=== PATIENT | male | born 1980 | race Caucasian/White ===

== ENCOUNTER 2017-08-09 03:12 | Emergency (ER) | payer SELFPAY ==
[~2017-08-09] VITALS: Ht 182.9 cm; Wt 78.0 kg
[~2017-08-09 03:12] MED LIST: DICL75 PO; DOXE50CA3 PO; METH5SOL3 PO; METH750T2 PO; WELL150T PO
[2017-08-09 03:17] VITALS: BP 134/77; PULSE 99; RESP 18; TEMP 98.3; O2SAT 95
[2017-08-09] MEDS ORDERED: SODIUM CHLOR 0.9% 1000 ML INJ 1,000 ML IV ONE (04:30)
[2017-08-09 04:52] VITALS: BP 108/62; PULSE 81; RESP 16; O2SAT 99
[2017-08-09 05:03] LABS: BICARBONATE 22.1 MEQ/L (21.0-32.0); CALCIUM 7.4 MG/DL (8.5-10.1); CREATININE 0.74 MG/DL (0.60-1.30)
[2017-08-09 05:10] LABS: TOTAL BILIRUBIN ADULT 0.2 MG/DL (0.2-1.0); TOTAL PROTEIN 7.1 GM/DL (6.4-8.2)
[2017-08-09 05:12] LABS: CALCIUM-PROTEIN CORRECTED 7.4 MG/DL (8.5-10.1)
[2017-08-09 05:20] LABS: AUTOMATED NEUTROPHIL # 9.6 TH/MM3 (1.8-7.7); BASOPHIL # 0.1 TH/MM3 (0-0.2); BASOPHIL % 0.8 % (0.0-2.0); EOSINOPHIL # 0.1 TH/MM3 (0-0.4); EOSINOPHIL % 0.7 % (0.0-4.0); HEMATOCRIT 40.2 % (39.0-51.0); HEMOGLOBIN 13.1 GM/DL (13.0-17.0); LYMPH % 7.5 % (9.0-44.0); LYMPHOCYTE # 0.8 TH/MM3 (1.0-4.8); MEAN CELL VOLUME 88.1 FL (80.0-100.0); MEAN CORPUSCULAR HEMOGLOBIN 28.8 PG (27.0-34.0); MEAN CORPUSCULAR HGB CONC 32.7 % (32.0-36.0); MEAN PLATELET VOLUME 7.8 FL (7.0-11.0); MONO % 3.3 % (0.0-8.0); MONOCYTE # 0.4 TH/MM3 (0-0.9); NEUT % 87.7 % (16.0-70.0); PLATELET COUNT 222 TH/MM3 (150-450); RED BLOOD COUNT 4.57 MIL/MM3 (4.50-5.90); RED CELL DISTRIBUTION WIDTH 15.3 % (11.6-17.2)
--- NOTE | 2017-08-09 06:20 | PD ---
HPI Chief Complaint: Alcohol/Drug Intoxication Time Seen by Provider: 04:11 Travel History International Travel<30 days: No Contact w/Intl Traveler<30days: No Traveled to known affect area: No History of Present Illness HPI Patient is a 37-year-old male brought in by EMS after he was found unresponsive outside by a passerby. EMS states he was with a group of people who are all sleeping on the board walk. He was given Narcan and awoke. Patient is sleeping , does not provide any history. PFSH Past Medical History Blood Disorders: No Anxiety: No Depression: No Heart Rhythm Problems: No Cardiovascular Problems: No High Cholesterol: No Chemotherapy: No Chest Pain: No Congestive Heart Failure: No Diabetes: No Diminished Hearing: No Endocrine: No Gastrointestinal Disorders: No Genitourinary: No Hypertension: Yes Immune Disorder: No Implanted Vascular Access Dvce: No Musculoskeletal: Yes (back , neck problem) Neurologic: No Psychiatric: No Reproductive: No Respiratory: No Immunizations Current: Yes Radiation Therapy: No Thyroid Disease: No Tetanus Vaccination: < 5 Years Influenza Vaccination: No Past Surgical History Other Surgery: No Social History Alcohol Use: Yes Tobacco Use: Yes Substance Use: Yes Allergies-Medications (Allergen,Severity, Reaction): Coded Allergies: No Known Allergies (Unverified Adverse Reaction, Unknown, 08/09/17) Reported Meds & Prescriptions Reported Meds & Active Scripts Active Active Prescriptions or Reported Medications Unobtainable Review of Systems ROS Limitations: Intoxication Physical Exam Narrative GENERAL: Patient sleeping, hard to wake up. SKIN: Focused skin assessment warm/dry. No wounds. HEAD: Atraumatic. Normocephalic. EYES: Pupils equal and round and reactive. No scleral icterus. Extraocular movements intact. ENT: Mucous membranes pink and moist. NECK: Trachea midline. No JVD. CARDIOVASCULAR: Regular rate and rhythm. No murmur appreciated. RESPIRATORY: No accessory muscle use. Clear to auscultation. Breath sounds equal bilaterally. GASTROINTESTINAL: Abdomen soft, non-tender, nondistended. MUSCULOSKELETAL: No obvious deformities. No clubbing. No cyanosis. No edema. NEUROLOGICAL: Sleeping. No obvious cranial nerve deficits. Motor grossly within normal limits. Data Data Last Documented VS Vital Signs Date Time Temp Pulse Resp B/P (MAP) Pulse Ox O2 Delivery O2 Flow Rate FiO2 08/09/17 13:26 08/09/17 09:24 98.0 89 16 99 Nasal Cannula 2.00 Orders Orders Iv Access Insert/Monitor (08/09/17 04:16) Complete Blood Count With Diff (08/09/17 04:16) Comprehensive Metabolic Panel (08/09/17 04:16) Alcohol (Ethanol) (08/09/17 04:16) Drug Screen, Random Urine (08/09/17 04:16) Sodium Chlor 0.9% 1000 Ml Inj (Ns 1000 M (08/09/17 04:30) Ed Discharge Order (08/09/17 12:37) Labs Laboratory Tests Test 08/09/17 04:30 08/09/17 05:10 08/09/17 05:45 Blood Urea Nitrogen 8 MG/DL Creatinine 0.74 MG/DL Random Glucose 82 MG/DL Total Protein 7.1 GM/DL Albumin 3.0 GM/DL Calcium Level 7.4 MG/DL Alkaline Phosphatase 178 U/L Aspartate Amino Transf (AST/SGOT) 23 U/L Alanine Aminotransferase (ALT/SGPT) 26 U/L Total Bilirubin 0.2 MG/DL Sodium Level 145 MEQ/L Potassium Level 3.9 MEQ/L Chloride Level 113 MEQ/L Carbon Dioxide Level 22.1 MEQ/L Anion Gap 10 MEQ/L Estimat Glomerular Filtration Rate 120 ML/MIN Protein Corrected Calcium 7.4 MG/DL Ethyl Alcohol Level 173 MG/DL White Blood Count 11.0 TH/MM3 Red Blood Count 4.57 MIL/MM3 Hemoglobin 13.1 GM/DL Hematocrit 40.2 % Mean Corpuscular Volume 88.1 FL Mean Corpuscular Hemoglobin 28.8 PG Mean Corpuscular Hemoglobin Concent 32.7 % Red Cell Distribution Width 15.3 % Platelet Count 222 TH/MM3 Mean Platelet Volume 7.8 FL Neutrophils (%) (Auto) 87.7 % Lymphocytes (%) (Auto) 7.5 % Monocytes (%) (Auto) 3.3 % Eosinophils (%) (Auto) 0.7 % Basophils (%) (Auto) 0.8 % Neutrophils # (Auto) 9.6 TH/MM3 Lymphocytes # (Auto) 0.8 TH/MM3 Monocytes # (Auto) 0.4 TH/MM3 Eosinophils # (Auto) 0.1 TH/MM3 Basophils # (Auto) 0.1 TH/MM3 CBC Comment DIFF FINAL Differential Comment Urine Opiates Screen POS Urine Barbiturates Screen NEG Urine Amphetamines Screen NEG Urine Benzodiazepines Screen NEG Urine Cocaine Screen POS Urine Cannabinoids Screen POS MDM Medical Decision Making Medical Screen Exam Complete: Yes Emergency Medical Condition: Yes Medical Record Reviewed: Yes Differential Diagnosis Drug intoxication versus electrolyte abnormality versus dehydration Narrative Course Patient is a 37-year-old male brought in unresponsive. He was given Narcan and woke up. He is sleeping here, hard to arouse however he is maintaining his oxygen saturation. Alcohol level is elevated. Drug screen positive for opiates , cocaine, marijuana. Patient observed in the emergency department until clinically sober. Discharged home. Advised to quit using drugs. Advised to return to the ED as needed for any worsening symptoms. Diagnosis Primary Impression: Drug intoxication Qualified Codes: F19.920 - Other psychoactive substance use, unspecified with intoxication, uncomplicated Patient Instructions: General Instructions, Narcotic Abuse (ED) Additional Instructions: Quit using drugs. Return to the ED as needed for any worsening symptoms. Scripts Unable to Obtain Active Prescriptions or Reported Meds Disposition: 01 DISCHARGE HOME Condition: Stable Teresa Barajas MD Aug 09, 2017 06:20
--- NOTE | 2017-08-09 07:21 | PD ---
Physical Exam Narrative Received signout from Dr. Cunningham for waiting on sobriety. 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 Will continue to monitor and discharge when sober/more alert. Data Data Last Documented VS Vital Signs Date Time Temp Pulse Resp B/P (MAP) Pulse Ox O2 Delivery O2 Flow Rate FiO2 08/09/17 09:24 98.0 89 16 128/78 (95) 99 Nasal Cannula 2.00 Orders Orders Iv Access Insert/Monitor (08/09/17 04:16) Complete Blood Count With Diff (08/09/17 04:16) Comprehensive Metabolic Panel (08/09/17 04:16) Alcohol (Ethanol) (08/09/17 04:16) Drug Screen, Random Urine (08/09/17 04:16) Sodium Chlor 0.9% 1000 Ml Inj (Ns 1000 M (08/09/17 04:30) Labs Laboratory Tests Test 08/09/17 04:30 08/09/17 05:10 08/09/17 05:45 Blood Urea Nitrogen 8 MG/DL Creatinine 0.74 MG/DL Random Glucose 82 MG/DL Total Protein 7.1 GM/DL Albumin 3.0 GM/DL Calcium Level 7.4 MG/DL Alkaline Phosphatase 178 U/L Aspartate Amino Transf (AST/SGOT) 23 U/L Alanine Aminotransferase (ALT/SGPT) 26 U/L Total Bilirubin 0.2 MG/DL Sodium Level 145 MEQ/L Potassium Level 3.9 MEQ/L Chloride Level 113 MEQ/L Carbon Dioxide Level 22.1 MEQ/L Anion Gap 10 MEQ/L Estimat Glomerular Filtration Rate 120 ML/MIN Protein Corrected Calcium 7.4 MG/DL Ethyl Alcohol Level 173 MG/DL White Blood Count 11.0 TH/MM3 Red Blood Count 4.57 MIL/MM3 Hemoglobin 13.1 GM/DL Hematocrit 40.2 % Mean Corpuscular Volume 88.1 FL Mean Corpuscular Hemoglobin 28.8 PG Mean Corpuscular Hemoglobin Concent 32.7 % Red Cell Distribution Width 15.3 % Platelet Count 222 TH/MM3 Mean Platelet Volume 7.8 FL Neutrophils (%) (Auto) 87.7 % Lymphocytes (%) (Auto) 7.5 % Monocytes (%) (Auto) 3.3 % Eosinophils (%) (Auto) 0.7 % Basophils (%) (Auto) 0.8 % Neutrophils # (Auto) 9.6 TH/MM3 Lymphocytes # (Auto) 0.8 TH/MM3 Monocytes # (Auto) 0.4 TH/MM3 Eosinophils # (Auto) 0.1 TH/MM3 Basophils # (Auto) 0.1 TH/MM3 CBC Comment DIFF FINAL Differential Comment Urine Opiates Screen POS Urine Barbiturates Screen NEG Urine Amphetamines Screen NEG Urine Benzodiazepines Screen NEG Urine Cocaine Screen POS Urine Cannabinoids Screen POS MDM Supervised Visit with GERSON: No Narrative Course 1236: Patient sober, at baseline, ambulating without difficulty in the ER. Will discharge. Diagnosis Primary Impression: Drug intoxication Qualified Codes: F19.920 - Other psychoactive substance use, unspecified with intoxication, uncomplicated Patient Instructions: General Instructions, Narcotic Abuse (ED) Additional Instruction: Quit using drugs. Return to the ED as needed for any worsening symptoms. Scripts Unable to Obtain Active Prescriptions or Reported Meds Disposition: 01 DISCHARGE HOME Condition: Stable Esperanza Hernandez MD Aug 09, 2017 07:21
[2017-08-09 07:30] VITALS: BP 125/92; PULSE 74; RESP 15; O2SAT 100
[2017-08-09 09:24] VITALS: BP 128/78; PULSE 89; RESP 16; TEMP 98; O2SAT 99
== END 2017-08-09 13:27 | disposition home or self-care (01) ==
LOC: NEPE 03:12 → NEDAMB 13:27
DX: F14.129 Cocaine abuse with intoxication, unspecified (principal); F12.129 Cannabis abuse with intoxication, unspecified; F11.129 Opioid abuse with intoxication, unspecified; Z72.0 Tobacco use
CPT/HCPCS: 80053; 80307; 85025; 96360; 99284; J7030